=== PATIENT | male | born 1975 | race Caucasian/White ===

== ENCOUNTER 2019-01-20 15:39 | Inpatient (IN) ==
[2019-01-20 16:52] LABS: Basophils # (auto) 0.04 K/uL (0-0.2); Basophils % (auto) 0.6 %; Eosinophils # (auto) 0.39 K/uL (0-0.5); Eosinophils % (auto) 5.6 %; Hematocrit (blood only) 45.5 % (42-52); Hemoglobin 15.6 g/dL (14.0-18.0); Immature Granulocytes # (auto) 0.02 K/uL (0.00-0.02); Immature Granulocytes % (auto) 0.3 %; Lymphocytes # (auto) 1.37 K/uL (1.2-3.4); Lymphocytes % (auto) 19.5 %; Mean Corpuscular Hgb Conc 34.3 g/dL (32-36); Mean Corpuscular Volume 90.8 fL (80-100); Mean Platelet Volume 9.8 fL (7.4-10.4); Monocytes # (auto) 0.93 K/uL (0.11-0.59); Monocytes % (auto) 13.3 %; Neutrophils # (auto) 4.26 K/uL (1.4-6.5); Neutrophils % (auto) 60.7 %; Platelet Count 237 K/uL (130-400); RDW Coefficient of Variation 13.2 % (11.5-14.5); RDW Standard Deviation 43.6 fL (36.4-46.3); Red Blood Count 5.01 M/uL (4.7-6.1); White Blood Count 7.01 K/uL (4.8-10.8)
[2019-01-20 16:54] LABS: Appearance Urine Clear (Clear); Bilirubin Urine Negative (Negative); Blood Urine Negative (Negative); Color Urine Yellow; Glucose Urine UA Negative (Negative); Ketones Urine Negative (Negative); Leukocyte Esterase Urine Negative (Negative); Nitrite Urine Negative (Negative); Protein Urine Negative (Negative); Specific Gravity Urine 1.013 (1.000-1.030); Urobilinogen Urine Negative (Negative); pH Urine 5.5 (4.5-7.5)
[2019-01-20 17:12] LABS: BUN Creatinine Ratio 12.1 (10-20); Calcium 8.8 mg/dl (8.5-10.1); Creatinine Clr Calc Pharmacy 140.4 ml/min; Est GFR (African American) 119.1; Est GFR (Non-African American) 102.8; Potassium 4.2 mmol/L (3.5-5.1)
[2019-01-20 17:22] LABS: Acetaminophen < 2 ug/ml (10-30); Salicylate 2.7 mg/dl (2.8-20)
[2019-01-20 17:23] LABS: Bilirubin,Total 0.2 mg/dl (0.2-1)
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
[2019-01-20] MEDS ORDERED: HYDROCODONE/ACETAMOPHEN 5/325MG TAB PO STA (17:45)
[2019-01-20] MEDS ORDERED: LABETALOL HCL 100 MG TAB PO ONE (17:45)
[2019-01-20 18:32] LABS: Amphetamines+Metham, Urine Neg (Neg); Barbiturates, Urine Neg (Neg); Benzodiazepine, Urine Pos (Neg); Cocaine, Urine Neg (Neg); MDMA (Ecstacy), Urine Neg (Neg); Methadone, Urine Neg (Neg); Opiate, Urine Neg (Neg); Phencyclidine, Urine Neg (Neg)
[2019-01-20] MEDS ORDERED: LORazepam 1 MG TAB SL STA (20:09)
[2019-01-20] MEDS ORDERED: cloNIDine HCl 0.1 MG TAB PO ONE ×2 (20:09→23:26)
[2019-01-20] MEDS ORDERED: OXYCODONE HCL IR 5 MG TAB (IMMEDIATE RELEASE) PO STA (21:07)
[2019-01-21] MEDS ORDERED: AMLODIPINE BESYLATE 5 MG TAB PO ONE ×2 (00:51→13:35)
--- NOTE | 2019-01-21 01:10 | Emergency Department Note ---
ED Visit Note I received this patient in signout at the change of shift from Dr. Rafy Olivier, pending 3 S. admission. Patient's blood pressure was notably elevated during his stay in the ED, he did receive p.o. labetalol 100 mg, clonidine 0.1 mg p.o. with subsequent 0.2 mg dosing. This was over the course of several hours. The patient's blood pressure did respond with a blood pressure of 138/88. I did discuss the case with pharmacy who recommendedNorvasc 5 mg p.o. daily, first dose was given. It would not be in the patient's best interest to have a sig nificant rebound hypertension or labile hypertension. This puts him at high risk of stroke. Further management can be deferred to psychiatry or internal medicine. He will require close follow-up for blood pressure upon discharge. Patient was accepted to 3 S. for further management of his psychiatric needs. . : HTN (hypertension) Qualifiers: Hypertension type: unspecified Qualified Code(s): I10 - Essential (primary) hypertension
[2019-01-21] MEDS ORDERED: MAGNESIUM HYDROXIDE SUSP 30 ML UDC PO PRN (01:45)
[2019-01-21] MEDS ORDERED: ACETAMINOPHEN 325 MG TAB PO PRN (01:45)
[2019-01-21] MEDS ORDERED: BISMUTH SUBSALICYLATE PER ML OMNICELL CHARGE PO PRN (01:45)
[2019-01-21] MEDS ORDERED: SODIUM CHLORIDE 0.65% NA SOLN 45 ML (OCEAN) PRN (01:45)
[2019-01-21] MEDS ORDERED: ALUMINUM/MAGNESIUM SUSP 30 ML UDC PO PRN (01:45)
[2019-01-21] MEDS: PROPRANOLOL HCL 20 MG TAB PO SCH ×2 (11:02→21:29)
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
[2019-01-21] MEDS: FEXOFENADINE HCL 180 MG TAB PO SCH (13:28)
[2019-01-21] MEDS: MONTELUKAST SODIUM 10 MG TABLET PO SCH (13:28)
[2019-01-21] MEDS: GABAPENTIN 100 MG CAP PO SCH ×3 (13:28→21:29)
[2019-01-21] MEDS: ESCITALOPRAM OXALATE 20 MG TAB PO SCH (14:49)
[2019-01-21] MEDS: HYDROCODONE/ACETAMINOPHEN 10/325 TAB PO PRN (15:42)
[2019-01-21] MEDS: FLUTICASONE HFA 220 MCG INHALER INH SCH (21:29)
[2019-01-22] MEDS: HYDROCODONE/ACETAMINOPHEN 10/325 TAB PO PRN ×2 (06:49→15:36)
[2019-01-22] MEDS: FEXOFENADINE HCL 180 MG TAB PO SCH (09:12)
[2019-01-22] MEDS: FLUTICASONE HFA 220 MCG INHALER INH SCH (09:12)
[2019-01-22] MEDS: PROPRANOLOL HCL 20 MG TAB PO SCH (09:12)
[2019-01-22] MEDS: GABAPENTIN 100 MG CAP PO SCH ×3 (09:16→17:18)
[2019-01-22] MEDS: ESCITALOPRAM OXALATE 20 MG TAB PO SCH (09:16)
[2019-01-22] MEDS: MONTELUKAST SODIUM 10 MG TABLET PO SCH (09:17)
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
[2019-01-24 14:46] LABS: 7-Aminoclonaz, Confirm NEGATIVE NG/ML (CUTOFF=25); Hydro-Alp Ur, GC/MS 75 NG/ML (CUTOFF=25); Hydroxyethylflurazepam, Conf NEGATIVE NG/ML (CUTOFF=50); Hydroxytriazolam NEGATIVE NG/ML (CUTOFF=50); Lorazepam, Ur GC/MS NEGATIVE NG/ML (CUTOFF=50); Nordiazepam, Confirm NEGATIVE NG/ML (CUTOFF=50); Oxazepam Ur, GC/MS NEGATIVE NG/ML (CUTOFF=50); Temazepam, Confirm NEGATIVE NG/ML (CUTOFF=50)
== END 2019-01-22 18:00 | disposition home or self-care (01) | DRG 882 ==
LOC: ED 15:39 → 3S 01-21 01:46

== ENCOUNTER 2022-01-21 22:38 | Observation (INO) ==
[2022-01-21 23:23] LABS: Basophils # (auto) 0.04 K/uL (0-0.2); Basophils % (auto) 0.5 %; Eosinophils # (auto) 0.57 K/uL (0-0.5); Eosinophils % (auto) 7.1 %; Hematocrit (blood only) 41.7 % (42-52); Hemoglobin 14.3 g/dL (14.0-18.0); Immature Granulocytes # (auto) 0.02 K/uL (0.00-0.02); Immature Granulocytes % (auto) 0.2 %; Lymphocytes # (auto) 1.97 K/uL (1.2-3.4); Lymphocytes % (auto) 24.6 %; Mean Corpuscular Hgb Conc 34.3 g/dL (32-36); Mean Corpuscular Volume 93.3 fL (80-100); Mean Platelet Volume 9.7 fL (7.4-10.4); Monocytes % (auto) 7.5 %; Neutrophils # (auto) 4.81 K/uL (1.4-6.5); Neutrophils % (auto) 60.1 %; Platelet Count 244 K/uL (130-400); RDW Standard Deviation 47.8 fL (36.4-46.3); Red Blood Count 4.47 M/uL (4.7-6.1); White Blood Count 8.01 K/uL (4.8-10.8)
[2022-01-21 23:46] LABS: Troponin I < 0.03 ng/ml (0-0.04)
[2022-01-21 23:53] LABS: Alanine Aminotransferase 24 U/L (7-52); Albumin Globulin Ratio 1.4 (0.9-2); Albumin Level 3.9 gm/dl (3.4-5.0); Alkaline Phosphatase 60 U/L (34-104); Anion Gap 8 (3-11); BUN Creatinine Ratio 14.1 (10-20); Bilirubin,Total 0.3 mg/dl (0.2-1.0); Blood Urea Nitrogen 14 mg/dl (6-23); Calcium 8.6 mg/dl (8.5-10.1); Carbon Dioxide 27 mmol/L (21-32); Chloride 103 mmol/L (98-107); Creatinine Clr Calc Pharmacy 122.3 ml/min; Est GFR (African American) 103.9 ml/min; Est GFR (Non-African American) 89.7 ml/min; Globulin 2.7 gm/dl (2.5-4.0); Glucose 145 mg/dl (70-99(Fasting)); Sodium 138 mmol/L (136-145); Total Protein 6.6 gm/dl (6.0-8.3)
--- NOTE | 2022-01-22 00:06 | Emergency Department Note ---
Impression & Plan SOB (shortness of breath), HTN (hypertension), Retrosternal chest pain ED Provider Note INFORMANT: Patient ED PROVIDER(S): Vinod Duran MD CHIEF COMPLAINT: Shortness of breath PLAN: Disposition: Admitted Condition: Good Outpatient prescription management: none Referral: None MEDICAL DECISION MAKING: Patient presented with concerning symptoms of shortness of breath, diaphoresis, retrosternal chest pain that radiated to the neck with significant hypertension. Patient's blood pressure improved significantly without direct intervention. His chest x-ray was unremarkable. The patient's CBC and chemistry panel were negative. ECG did not reveal any acute findings. The patient was given aspirin. His troponin was negative. The patient's D-dimer was mildly elevated. CT imaging was ordered however this was canceled due to the patient's history of anaphylaxis with CT dye. Given the patient's family history and event this evening I discussed further management in the hospital for serial troponins and possible stress testing. Patient was in agreement. Consultation was made with Dr. Jerad Zavala of the [facility] service. Patient was evaluated in the ER for further management. We did discuss the dye allergy and positive D-dimer. They will manage further work-up for the elevated dimer. Triage Nursing notes reviewed and agree them. Vital Signs: reviewed and remarkable for hypertension Differential diagnosis: Reactive airway disease, pneumonia, pneumothorax, COPD, CHF, infections, cardiac ischemia, pulmonary embolism, musculoskeletal, gastrointestinal, as well as other pathologies. Diagnostics interpreted by me: EC Lead ECG performed and revealed Normal sinus rhythm at 75, normal [place], QRS normal. No elevation or depression. No PACs or PVCs Cardiac Monitoring: Cardiac monitoring ordered by me: The patient was placed on continuous cardiac monitoring and observed. It revealed a normal sinus rhythm at 77 beats per minute without ectopy or evidence of dysrhythmia. Imaging studies: Chest x-ray. Findings: A chest x-ray was performed and revealed no pneumothorax, effusion, infiltrate, pulmonary edema, free air under the diaphragm, or wide mediastinum. Impression: No acute disease. HPI: The patient is a 46 year old male who presents to the Emergency Room with complaints of shortness of breath. This started this evening and is resolved. The patient also notes the following associated symptoms, retrosternal chest pain, posterior neck pain, diaphoresis. The patient has taken no medication for relieving factors. Current pain is rated as 0/10. When the patient presented pain was a 4 out of 10. He notes his blood pressure spiked to 190/105. This event occurred at rest. Pt denies LOC, headache, fevers, chills, visual changes, neck pain,nausea, vomiting, abdominal pain, back pain, melena, hematochezia, urinary symptoms, numbness, weakness, lymphadenopathy, rash, or other complaints. ROS: See above HPI for pertinent positives & negatives. A total of 10 systems reviewed and were otherwise negative. PAST MEDICAL HISTORY:See Below , hypertension PAST SURGICAL HISTORY:See Below, appendectomy FAMILY HISTORY:See Below, Hypertension, CAD SOCIAL HISTORY:See Below, non-smoker HOME MEDICATIONS:See Below ALLERGIES:See Below VITALS:See Below PHYSICAL EXAMINATION: GENERAL: Awake, alert, well-appearing, in no distress HENT: Normocephalic, atraumatic. Oropharynx unremarkable. EYES: Normal conjunctiva. Sclera non-icteric. NECK: Inspection normal. Non-tender. Supple. No nuchal rigidity. FROM. No masses. RESPIRATORY: Clear to auscultation. No wheezes. No rales. Normal respiratory effort. CARDIAC: Normal rate. Normal rhythm. No murmurs. No rubs. Extremities warm and well perfused. Pulses equal. No JVD. GI: Soft, non-distended. No tenderness to palpation. No rebound or guarding. No masses. RECTAL: Deferred. MUSCULOSKELETAL: Atraumatic. Chest examination reveals no tenderness. The back is symmetrical on inspection without obvious abnormality. There is no CVA tenderness to palpation. No joint edema. LOWER EXTREMITIES: Calves are equal size bilaterally and non-tender. Trace edema. No discoloration. NEURO: Normal sensorium. No sensory or motor deficits noted. SKIN: No rash or jaundice noted. Vinod Duran MD Past Med/Surg History Medical History (Updated 01/22/22 @ 00:05 by Vinod Duran MD) HTN (hypertension) PTSD (post-traumatic stress disorder) Spinal injury Social History Smoking Status: Former smoker Tobacco Type: Cigarettes Preferred Language: Occitan Communication Ability: Effective Hose Stripper Required: No Beliefs That Will Affect Care: Faith ([employer]) Feels Safe at Home: Yes Assistive Devices: Glasses Allergies Allergies Allergy/AdvReac Type Severity Reaction Status Date / Time Iodinated Contrast Media Allergy Severe Anaphylaxis Verified 01/21/22 23:28 Home Meds Home Medications Medication Instructions Recorded Confirmed hydrocodone 10 mg-acetaminophen 1 tab PO Q8H PRN 01/20/19 01/21/22 325 mg tablet montelukast 10 mg tablet 10 mg PO DAILY 01/20/19 01/21/22 alprazolam 0.25 mg tablet 0.25 mg PO DAILY PRN 01/21/22 01/21/22 amlodipine 5 mg tablet 5 mg PO DAILY 01/21/22 01/21/22 cholecalciferol (vitamin D3) 50 2,000 unit PO DAILY 01/21/22 01/21/22 mcg (2,000 unit) tablet clomiphene citrate 50 mg tablet 50 mg PO DAILY 01/21/22 01/21/22 gabapentin 300 mg capsule 300 mg PO BID 01/21/22 01/21/22 losartan 100 mg tablet 100 mg PO DAILY 01/21/22 01/21/22 Results & Data (ED) Vital Signs Vital Signs - 24 hr 01/21/22 22:40 01/21/22 22:58 01/21/22 23:00 Temperature 36.5 C Temperature Source Temporal Artery Scan Pulse Rate 73 72 75 Pulse Rhythm Respiratory Rate 20 20 17 Respiratory Effort / Characteristics Non-Labored Spontaneous Respiratory Depth Normal Respiratory Pattern Blood Pressure 190/104 H 172/97 H Blood Pressure Mean 132 122 Blood Pressure Position Sitting Pulse Oximetry 99 100 100 Oxygen Delivery Method Room Air Sepsis Recent Fever Within 48 Hours No Sepsis New/Unexplained Change in Mental Status N/A Sepsis Action Taken by Nursing No Action Required 01/21/22 23:06 01/21/22 23:30 01/21/22 23:33 Temperature Temperature Source Pulse Rate 79 82 Pulse Rhythm Regular Respiratory Rate 16 Respiratory Effort / Characteristics Non-Labored Respiratory Depth Normal Respiratory Pattern Regular Blood Pressure 153/85 H Blood Pressure Mean 107 Blood Pressure Position Pulse Oximetry 98 98 Oxygen Delivery Method Room Air Room Air Sepsis Recent Fever Within 48 Hours Sepsis New/Unexplained Change in Mental Status Sepsis Action Taken by Nursing 01/21/22 23:45 01/22/22 00:00 01/22/22 00:15 Temperature Temperature Source Pulse Rate 78 78 83 Pulse Rhythm Respiratory Rate 19 19 19 Respiratory Effort / Characteristics Respiratory Depth Respiratory Pattern Blood Pressure 154/92 H Blood Pressure Mean 112 Blood Pressure Position Pulse Oximetry 100 98 97 Oxygen Delivery Method Sepsis Recent Fever Within 48 Hours Sepsis New/Unexplained Change in Mental Status Sepsis Action Taken by Nursing 01/22/22 00:30 01/22/22 00:45 01/22/22 01:00 Temperature Temperature Source Pulse Rate 81 78 77 Pulse Rhythm Respiratory Rate 18 16 16 Respiratory Effort / Characteristics Respiratory Depth Respiratory Pattern Blood Pressure 136/82 Blood Pressure Mean 100 Blood Pressure Position Pulse Oximetry 98 97 Oxygen Delivery Method Sepsis Recent Fever Within 48 Hours Sepsis New/Unexplained Change in Mental Status Sepsis Action Taken by Nursing Laboratory Data Result diagrams: 01/21/22 23:00 01/21/22 23:00 Lab Results 01/21/22 01/21/22 01/21/22 Range/Units 23:00 23:00 23:00 WBC 8.01 (4.8-10.8) K/uL RBC 4.47 L (4.7-6.1) M/uL Hgb 14.3 (14.0-18.0) g/dL Hct 41.7 L (42-52) % MCV 93.3 (80-100) fL MCH 32.0 (25-34) pg MCHC 34.3 (32-36) g/dL RDW Std Deviation 47.8 H (36.4-46.3) fL RDW Coeff of Carol 14.0 (11.5-14.5) % Plt Count 244 (130-400) K/uL MPV 9.7 (7.4-10.4) fL Immature Gran % (Auto) 0.2 % Neut % (Auto) 60.1 % Lymph % (Auto) 24.6 % [place] % (Auto) 7.5 % Eos % (Auto) 7.1 % Baso % (Auto) 0.5 % Neut # (Auto) 4.81 (1.4-6.5) K/uL Lymph # (Auto) 1.97 (1.2-3.4) K/uL [place] # (Auto) 0.60 H (0.11-0.59) K/uL Eos # (Auto) 0.57 H (0-0.5) K/uL Baso # (Auto) 0.04 (0-0.2) K/uL Immature Gran # (Auto) 0.02 (0.00-0.02) K/uL D-Dimer 840 H* (0-500) ug/L FEU Sodium (136-145) mmol/L Potassium (3.5-5.1) mmol/L Chloride (98-107) mmol/L Carbon Dioxide (21-32) mmol/L Anion Gap (3-11) BUN (6-23) mg/dl Creatinine (0.6-1.4) mg/dl Est Cr Clr Drug Dosing ml/min Est GFR ( Amer) ml/min Est GFR (Non-Af Amer) ml/min BUN/Creatinine Ratio (10-20) Glucose (70-99(Fasting)) mg/dl Calcium (8.5-10.1) mg/dl Magnesium (1.7-2.4) mg/dl Total Bilirubin (0.2-1.0) mg/dl AST (13-39) U/L ALT (7-52) U/L Alkaline Phosphatase (34-104) U/L Troponin I (0-0.04) ng/ml B-Natriuretic Peptide 57 (0-100) pg/ml Total Protein (6.0-8.3) gm/dl Albumin (3.4-5.0) gm/dl Globulin (2.5-4.0) gm/dl Albumin/Globulin Ratio (0.9-2) 01/21/22 Range/Units 23:00 WBC (4.8-10.8) K/uL RBC (4.7-6.1) M/uL Hgb (14.0-18.0) g/dL Hct (42-52) % MCV (80-100) fL MCH (25-34) pg MCHC (32-36) g/dL RDW Std Deviation (36.4-46.3) fL RDW Coeff of Carol (11.5-14.5) % Plt Count (130-400) K/uL MPV (7.4-10.4) fL Immature Gran % (Auto) % Neut % (Auto) % Lymph % (Auto) % [place] % (Auto) % Eos % (Auto) % Baso % (Auto) % Neut # (Auto) (1.4-6.5) K/uL Lymph # (Auto) (1.2-3.4) K/uL [place] # (Auto) (0.11-0.59) K/uL Eos # (Auto) (0-0.5) K/uL Baso # (Auto) (0-0.2) K/uL Immature Gran # (Auto) (0.00-0.02) K/uL D-Dimer (0-500) ug/L FEU Sodium 138 (136-145) mmol/L Potassium 4.1 (3.5-5.1) mmol/L Chloride 103 (98-107) mmol/L Carbon Dioxide 27 (21-32) mmol/L Anion Gap 8 (3-11) BUN 14 (6-23) mg/dl Creatinine 0.99 (0.6-1.4) mg/dl Est Cr Clr Drug Dosing 122.3 ml/min Est GFR ( Amer) 103.9 ml/min Est GFR (Non-Af Amer) 89.7 ml/min BUN/Creatinine Ratio 14.1 (10-20) Glucose 145 H (70-99(Fasting)) mg/dl Calcium 8.6 (8.5-10.1) mg/dl Magnesium 2.0 (1.7-2.4) mg/dl Total Bilirubin 0.3 (0.2-1.0) mg/dl AST 25 (13-39) U/L ALT 24 (7-52) U/L Alkaline Phosphatase 60 (34-104) U/L Troponin I < 0.03 (0-0.04) ng/ml B-Natriuretic Peptide (0-100) pg/ml Total Protein 6.6 (6.0-8.3) gm/dl Albumin 3.9 (3.4-5.0) gm/dl Globulin 2.7 (2.5-4.0) gm/dl Albumin/Globulin Ratio 1.4 (0.9-2) Administered Medications Discontinued Medications Aspirin (Aspirin Chew 324 Mg) 324 mg PO NOW STA Stop: 01/22/22 00:49 Last Admin: 01/22/22 01:13 Dose: 324 mg Documented by: [id number] Discharge Plan Visit Data Chief Complaint: Shortness of Breath/Dyspnea Stated Complaint: SOB, HYPERTENSION ED Provider: Vinod Duran Discharge Problem: SOB (shortness of breath), HTN (hypertension), Retrosternal chest pain Forms Stand Alone Forms: My [facility] Prescriptions Prescriptions: No Action hydrocodone-acetaminophen 10-325 mg Tablet 1 tab PO Q8H PRN (Reason: Back Pain) RF: 0 montelukast 10 mg Tablet 10 mg PO DAILY RF: 0 clomiphene citrate 50 mg tablet 50 mg PO DAILY RF: 0 amlodipine 5 mg tablet 5 mg PO DAILY RF: 0 alprazolam 0.25 mg tablet 0.25 mg PO DAILY PRN (Reason: Anxiety) RF: 0 gabapentin 300 mg capsule 300 mg PO BID RF: 0 losartan 100 mg tablet 100 mg PO DAILY RF: 0 cholecalciferol (vitamin D3) 50 mcg (2,000 unit) tablet 2,000 unit PO DAILY RF: 0 Referrals Referrals: PCP,NO [Physician] -
[2022-01-22 00:30] LABS: Aspartate Aminotransferase 25 U/L (13-39); Potassium 4.1 mmol/L (3.5-5.1)
[2022-01-22 00:34] LABS: D Dimer 840 ug/L FEU (0-500)
[2022-01-22] MEDS ORDERED: ASPIRIN CHEW 324 MG PO STA (00:48)
--- NOTE | 2022-01-22 02:12 | History & Physical Report ---
Date of Service January 22, 2022 Assessment & Plan (1) Retrosternal chest pain: Plan: Retrosternal chest pain/shortness of breath/palpitations/sweats/hypertension- The patient will be admitted to telemetry for serial cardiac enzymes, serial EKG's, cardiac rhythm monitoring and a 2-D echocardiogram with Dopplers. 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: Plan: Patient is on clomiphene citrate while he and his have been been trying to conceive for the past year It is possible that the potential side effect of this medication causing hot flashes may be contributing to and/or causing his paroxysmal symptoms We will hold this medication for now Check an FSH, LH, estrogen and testosterone levels (5) PTSD (post-traumatic stress disorder): Plan: PTSD/depression/history of suicide attempt/no present suicidal ideation- Continue gabapentin and as needed alprazolam (6) Depression: Plan: See above (7) Suicide attempt: Plan: See above History of Present Illness Chief Complaint: The patient presents to the emergency department with acute onset of episodic substernal chest pressure and diffuse sweats that initially occurred 4 nights ago while at home, and was sent home from work 3 nights ago and tonight. Primary Care Provider: Colin Amato The patient is a 46-year-old male with a past medical history including suicide attempt, depression, suicidal ideation, hypertension, spinal injury and PTSD. He presents to the emergency department with acute onset of symptoms as noted above. He did have an episode while in front of me in the emergency department, which consisted of acute substernal chest pressure, heart rate increased from 80-100, systolic blood pressure increased by 20 points. EKG performed during acute event showed normal sinus rhythm at [address]-T changes. Patient notes that when this had happened in the past, he did get some Xanax which helped the symptoms, he was given 0.25 mg of Xanax while in the ED this evening. Allergies Allergy/AdvReac Type Severity Reaction Status Date / Time Iodinated Contrast Media Allergy Severe Anaphylaxis Verified 01/21/22 23:28 Home Medications Medication Instructions Recorded Confirmed Type hydrocodone 10 mg-acetaminophen 1 tab PO Q8H PRN 01/20/19 01/21/22 History 325 mg tablet montelukast 10 mg tablet 10 mg PO DAILY 01/20/19 01/21/22 History alprazolam 0.25 mg tablet 0.25 mg PO DAILY PRN 01/21/22 01/21/22 History amlodipine 5 mg tablet 5 mg PO DAILY 01/21/22 01/21/22 History cholecalciferol (vitamin D3) 50 2,000 unit PO DAILY 01/21/22 01/21/22 History mcg (2,000 unit) tablet clomiphene citrate 50 mg tablet 50 mg PO DAILY 01/21/22 01/21/22 History gabapentin 300 mg capsule 300 mg PO BID 01/21/22 01/21/22 History losartan 100 mg tablet 100 mg PO DAILY 01/21/22 01/21/22 History Past Med/Surg History Medical History (Updated 01/22/22 @ 04:20 by Jerad Zavala MD) Depression HTN (hypertension) 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 PTSD (post-traumatic stress disorder) Spinal injury Suicide attempt Social History Smoking Status: Former smoker Tobacco Type: Cigarettes Smoking End Date: 8 years ago; Second Hand Exposure: No; Do You Dip or Chew Tobacco: No; Tobacco Cessation Education Requested by Patient: No Hx Alcohol Use: Yes Alcohol type: beer Hx Substance Use: Yes Last Used Substance: Days (ago) Substance Use Type Other:: medical Preferred Language: Frisian Communication Ability: Effective 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 Beliefs That Will Affect Care: None Current Living Situation: Spouse Other Information That Helps Us Care for You: No Feels Safe at Home: Yes Safety Concerns: Feels Safe At This Time Assistive Devices: Glasses Review of Systems Review of Systems: The patient denies cough, lower extremity swelling, sore throat, fevers, chills, sweats, weight change, fatigue, nausea, vomiting, diarrhea , constipation, abdominal pain, pelvic pain, blood in urine or stool, dysuria, urinary frequency or urgency, memory loss, loss of consciousness, rash, abnormal bruising or bleeding, imbalance, focal or generalized weakness, numbness or tingling in arms or legs, generalized arthralgias or myalgias, back or neck pain, or night sweats. The review of systems is otherwise negative other than for that already noted above, and at least 10 systems have been reviewed. Physical Exam Physical Exam: The patient is awake, alert and oriented 3, well developed and well nourished, normocephalic and atraumatic, lying in bed and in no acute distress. HEENT--PERRL, EOMI, mucous membranes and oropharynx normal. Neck--supple. No JVD. No bruits. Thyroid normal, trachea midline, no adenopathy. Heart--normal S1 and S2. No murmurs, rubs or gallops. Lungs--clear bilaterally, no respiratory distress, no accessory muscle use. Abdomen--normal bowel sounds and soft. Nontender. Nondistended. Obese Extremities--no cyanosis or clubbing. No edema. Dermatologic--normal skin turgor, normal color, no abnormal lymph nodes, no r monik. Neurologic--cranial nerves II through XII grossly intact. Rheumatologic--normal range of motion. Psychiatric--normal affect. Results & Data Results & Data ([facility]) Vital Signs (Past 12 Hours) Vital Signs Temp Pulse Resp BP Pulse Ox 01/22/22 01:00 77 16 136/82 97 01/22/22 00:45 78 16 98 01/22/22 00:30 81 18 01/22/22 00:15 83 19 97 01/22/22 00:00 78 19 154/92 H 98 01/21/22 23:45 78 19 100 01/21/22 23:33 82 98 01/21/22 23:30 79 16 153/85 H 98 01/21/22 23:00 75 17 172/97 H 100 01/21/22 22:58 72 20 100 01/21/22 22:40 36.5 C 73 20 190/104 H 99 Diagnostic Findings Laboratory Results WBC 8.01 K/uL (4.8-10.8) 01/21/22 23:00 RBC 4.47 M/uL (4.7-6.1) L 01/21/22 23:00 Hgb 14.3 g/dL (14.0-18.0) 01/21/22 23:00 Hct 41.7 % (42-52) L 01/21/22 23:00 MCV 93.3 fL (80-100) 01/21/22 23:00 MCH 32.0 pg (25-34) 01/21/22 23:00 MCHC 34.3 g/dL (32-36) 01/21/22 23:00 RDW Std Deviation 47.8 fL (36.4-46.3) H 01/21/22 23:00 RDW Coeff of Carol 14.0 % (11.5-14.5) 01/21/22 23:00 Plt Count 244 K/uL (130-400) 01/21/22 23:00 MPV 9.7 fL (7.4-10.4) 01/21/22 23:00 Immature Gran % (Auto) 0.2 % 01/21/22 23:00 Neut % (Auto) 60.1 % 01/21/22 23:00 Lymph % (Auto) 24.6 % 01/21/22 23:00 [place] % (Auto) 7.5 % 01/21/22 23:00 Eos % (Auto) 7.1 % 01/21/22 23:00 Baso % (Auto) 0.5 % 01/21/22 23:00 Neut # (Auto) 4.81 K/uL (1.4-6.5) 01/21/22 23:00 Lymph # (Auto) 1.97 K/uL (1.2-3.4) 01/21/22 23:00 [place] # (Auto) 0.60 K/uL (0.11-0.59) H 01/21/22 23:00 Eos # (Auto) 0.57 K/uL (0-0.5) H 01/21/22 23:00 Baso # (Auto) 0.04 K/uL (0-0.2) 01/21/22 23:00 Immature Gran # (Auto) 0.02 K/uL (0.00-0.02) 01/21/22 23:00 D-Dimer 840 ug/L FEU (0-500) H* 01/21/22 23:00 Sodium 138 mmol/L (136-145) 01/21/22 23:00 Potassium 4.1 mmol/L (3.5-5.1) 01/21/22 23:00 Chloride 103 mmol/L (98-107) 01/21/22 23:00 Carbon Dioxide 27 mmol/L (21-32) 01/21/22 23:00 Anion Gap 8 (3-11) 01/21/22 23:00 BUN 14 mg/dl (6-23) 01/21/22 23:00 Creatinine 0.99 mg/dl (0.6-1.4) 01/21/22 23:00 Est Cr Clr Drug Dosing 122.3 ml/min 01/21/22 23:00 Est GFR ( Amer) 103.9 ml/min 01/21/22 23:00 Est GFR (Non-Af Amer) 89.7 ml/min 01/21/22 23:00 BUN/Creatinine Ratio 14.1 (10-20) 01/21/22 23:00 Glucose 145 mg/dl (70-99(Fasting)) H 01/21/22 23:00 POC Glucose 180 mg/dl (70-99) H 01/22/22 01:52 Calcium 8.6 mg/dl (8.5-10.1) 01/21/22 23:00 Magnesium 2.0 mg/dl (1.7-2.4) 01/21/22 23:00 Total Bilirubin 0.3 mg/dl (0.2-1.0) 01/21/22 23:00 AST 25 U/L (13-39) 01/21/22 23:00 ALT 24 U/L (7-52) 01/21/22 23:00 Alkaline Phosphatase 60 U/L (34-104) 01/21/22 23:00 Troponin I < 0.03 ng/ml (0-0.04) 01/21/22 23:00 B-Natriuretic Peptide 57 pg/ml (0-100) 01/21/22 23:00 Total Protein 6.6 gm/dl (6.0-8.3) 01/21/22 23:00 Albumin 3.9 gm/dl (3.4-5.0) 01/21/22 23:00 Globulin 2.7 gm/dl (2.5-4.0) 01/21/22 23:00 Albumin/Globulin Ratio 1.4 (0.9-2) 01/21/22 23:00 TSH 1.727 uIu/ml (0.300-4.500) 01/22/22 Unknown FSH 4.93 IU/L 01/22/22 Unknown Luteinizing Hormone 2.54 IU/L 01/22/22 Unknown SARS-CoV-2, RNA, NAAT NEGATIVE (NEGATIVE) 01/22/22 Unknown Code Status & VTE Plan Code Status Full code VTE Prophylaxis Plan VTE Prophylaxis will be ordered: Yes PG Care Time/CCT Total # of Minutes Spent Total Time Spent with Patient: Total time spent is greater than 50% in coordination of care (as documented) at patient's floor/unit and/or counseling patient: Coding Level of Care Code INT OBSERVATION CARE 70M LVL 3 Diagnoses Retrosternal chest pain R07.2 SOB (shortness of breath) R06.02 HTN (hypertension) I10 Depression F32.9 Depression Type: unspecified Suicide attempt T14.91XA 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 N46.9 PTSD (post-traumatic stress disorder) F43.10 (1) Depression Depression Type: unspecified Qualified Code(s): F32.9 - Major depressive disorder, single episode, unspecified
[2022-01-22] MEDS ORDERED: ALPRAZolam 0.5 MG TABLET PO STA (02:44)
[2022-01-22] MEDS ORDERED: ALPRAZolam 0.5 MG TABLET ONE (02:46)
[2022-01-22 03:19] LABS: Follicle Stimulating Hormone 4.93 IU/L
[2022-01-22 03:20] LABS: Luteinizing Hormone 2.54 IU/L
[2022-01-22] MEDS ORDERED: ACETAMINOPHEN 325 MG TAB PO PRN (03:29)
[2022-01-22] MEDS ORDERED: ALPRAZolam 0.25 MG TABLET PO PRN (03:29)
[2022-01-22] MEDS ORDERED: ONDANSETRON INJ 2 MG/ML 2 ML VIAL IV PRN (03:29)
[2022-01-22] MEDS: HYDROcodone/ACETAMINOPHEN 10/325 TAB PO PRN ×2 (04:12→19:25)
--- NOTE | 2022-01-22 07:52 | XRay Report ---
SINGLE VIEW CHEST CLINICAL HISTORY: Dyspnea FINDINGS: An AP, portable, upright chest radiograph is obtained. No prior studies are available for c omparison at the time of dictation. The examination is degraded by portable technique and apical lord otic positioning. The cardiomediastinal silhouette is top normal for projection. The lungs and pleura l spaces are clear noting minimal bibasilar atelectasis. No pneumothorax is seen. The bony thorax is grossly intact. IMPRESSION: No active disease in the chest. ACT 112: Negative or not required by law. Electronically signed by: Rafy Randolph M.D. 01/22/2022 7:51 AM
--- NOTE | 2022-01-22 08:14 | CT Scan Report ---
CT SCAN OF THE CHEST WITHOUT IV CONTRAST CLINICAL HISTORY: Paroxysmal chest pain. Dyspnea. COMPARISON STUDY: Chest x-ray dated 01/21/2022. TECHNIQUE: CT scan of the thorax was performed from the thoracic inlet to the upper abdomen. Images are reviewed in the axial, sagittal, and coronal planes. IV contrast was not administered for this ex amination as per the referring clinician. A dose lowering technique was utilized adhering to the [facility]. CT DOSE: 1031.47 mGy.cm FINDINGS: Thyroid: Imaged portions of the thyroid gland are normal in size and attenuation. Thoracic aorta: The thoracic aorta is normal in caliber and demonstrates standard 3-vessel arch anato my. Heart: The heart is top normal in size and without pericardial effusion. There are coronary artery ca lcifications. Lungs and pleural spaces: There is no airspace consolidation or pleural effusion. A 3 mm right lower lobe pulmonary nodule is seen image #174. The trachea and central airways are clear. Mediastinum: There is no mediastinal lymphadenopathy. Irene: Not well assessed without IV contrast. Axillae: There is no axillary lymphadenopathy. Upper abdomen: There is a small hiatal hernia. The liver is steatotic. Skeletal structures: No lytic or blastic bony lesions are seen. IMPRESSION: 1. The lungs are clear. 2. There are coronary artery calcifications. 3. Hepatic steatosis. ACT 112: Negative or not required by law. Electronically signed by: Rafy Randolph M.D. 01/22/2022 8:12 AM
[2022-01-22] MEDS: amLODIPine BESYLATE 5 MG TAB PO SCH (08:27)
[2022-01-22] MEDS: CHOLECALCIFEROL 1,000 UNITS 25 MCG TAB PO SCH (08:28)
[2022-01-22] MEDS: GABAPENTIN 300 MG CAP PO SCH ×2 (08:28→21:13)
[2022-01-22] MEDS: LOSARTAN POTASSIUM 50 MG TAB PO SCH (08:29)
[2022-01-22] MEDS: MONTELUKAST SODIUM 10 MG TABLET PO SCH (08:29)
--- NOTE | 2022-01-22 10:48 | Nuclear Medicine Report ---
NUCLEAR PULMONARY PERFUSION SCAN CLINICAL HISTORY: Atypical chest pain. Elevated d-dimer. COMPARISON STUDY: Chest x-ray dated 01/21/[address] dated 01/22/2022. TECHNIQUE: Nuclear pulmonary perfusion scan of both lungs was performed following the IV administrati on of 5.1 mCi of technetium 99m MAA. Ventilation and perfusion images were acquired in the anterior, posterior, and oblique projections. FINDINGS: A chest x-ray performed 01/21/2022 shows no acute cardiopulmonary abnormality The perfusion of both lungs is normal and symmetric. No perfusion defects are identified to suggest p ulmonary embolus. IMPRESSION: No perfusion defects are identified typical for pulmonary embolus. ACT 112: Negative or not required by law. Electronically signed by: Rafy Randolph M.D. 01/22/2022 10:47 AM
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
[2022-01-22 11:24] LABS: Appearance Urine Clear (Clear); Bilirubin Urine Negative (Negative); Blood Urine Negative (Negative); Color Urine Yellow; Glucose Urine UA Negative (Negative); Ketones Urine Negative (Negative); Leukocyte Esterase Urine Negative (Negative); Nitrite Urine Negative (Negative); Protein Urine Negative (Negative); Specific Gravity Urine 1.017 (1.000-1.030); Urobilinogen Urine Negative (Negative); pH Urine 6.5 (4.5-7.5)
[2022-01-22 14:42] LABS: Chol HDL Ratio 6.1 (0-5)
--- NOTE | 2022-01-22 16:46 | XCELERA ---
[id number] \\[id number]
--- NOTE | 2022-01-22 18:37 | XCELERA ---
[id number] \\[id number]
--- NOTE | 2022-01-22 21:06 | Hospitalist Progress Note ---
Date of Service January 22, 2022 Assessment & Plan (1) Retrosternal chest pain: Plan: Retrosternal chest pain/shortness of breath/palpitations/sweats/hypertension- The patient will be admitted to telemetry for serial cardiac enzymes, serial EKG's, cardiac rhythm monitoring and a 2-D echocardiogram with Dopplers. 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: Plan: Patient is on clomiphene citrate while he and his have been been trying to conceive for the past year It is possible that the potential side effect of this medication causing hot flashes may be contributing to and/or causing his paroxysmal symptoms We will hold this medication for now Check an FSH, LH, estrogen and testosterone levels (5) PTSD (post-traumatic stress disorder): Plan: PTSD/depression/history of suicide attempt/no present suicidal ideation- Continue gabapentin and as needed alprazolam (6) Depression: Plan: See above (7) Suicide attempt: Plan: See above Admission and Anticipated Discharge Date Admission Date: January 22, 2022 Results & Data Results & Data (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
--- NOTE | 2022-01-23 05:28 | Electrocardiogram Report ---
Test Reason : Blood Pressure : / mmHG Vent. Rate : 075 BPM Atrial Rate : 075 BPM P-R Int : 138 ms QRS Dur : 106 ms QT Int : 412 ms P-R-T Axes : 030 024 020 degrees QTc Int : 460 ms Poor data quality, interpretation may be adversely affected Normal sinus rhythm Normal ECG No previous ECGs available Confirmed by Neeraj Arredondo ([id number]) on 01/23/2022 5:28:43 AM Referred By: REFERRED SELF Confirmed By:Neeraj Arredondo
--- NOTE | 2022-01-23 05:31 | Electrocardiogram Report ---
Test Reason : Blood Pressure : / mmHG Vent. Rate : 066 BPM Atrial Rate : 066 BPM P-R Int : 152 ms QRS Dur : 102 ms QT Int : 402 ms P-R-T Axes : 029 029 029 degrees QTc Int : 421 ms Normal sinus rhythm Normal ECG When compared with ECG of 21-JAN-2022 22:52, No significant change was found Confirmed by Neeraj Arredondo ([id number]) on 01/23/2022 5:30:43 AM Referred By: REFERRED SELF Confirmed By:Neeraj Arredondo
[2022-01-23] MEDS: HYDROcodone/ACETAMINOPHEN 10/325 TAB PO PRN (05:50)
[2022-01-23 06:27] LABS: Basophils # (auto) 0.08 K/uL (0-0.2); Eosinophils # (auto) 0.74 K/uL (0-0.5); Eosinophils % (auto) 9.5 %; Hematocrit (blood only) 41.9 % (42-52); Hemoglobin 14.1 g/dL (14.0-18.0); Immature Granulocytes # (auto) 0.01 K/uL (0.00-0.02); Immature Granulocytes % (auto) 0.1 %; Lymphocytes # (auto) 2.41 K/uL (1.2-3.4); Lymphocytes % (auto) 30.8 %; Mean Corpuscular Hemoglobin 31.2 pg (25-34); Mean Corpuscular Hgb Conc 33.7 g/dL (32-36); Mean Corpuscular Volume 92.7 fL (80-100); Mean Platelet Volume 9.8 fL (7.4-10.4); Monocytes # (auto) 0.49 K/uL (0.11-0.59); Monocytes % (auto) 6.3 %; Neutrophils % (auto) 52.3 %; Platelet Count 245 K/uL (130-400); RDW Coefficient of Variation 13.8 % (11.5-14.5); RDW Standard Deviation 47.2 fL (36.4-46.3); Red Blood Count 4.52 M/uL (4.7-6.1); White Blood Count 7.83 K/uL (4.8-10.8)
[2022-01-23 07:01] LABS: Albumin Level 3.8 gm/dl (3.4-5.0); Calcium 8.8 mg/dl (8.5-10.1); Creatinine Clr Calc Pharmacy 117.9 ml/min; Est GFR (African American) 102.7 ml/min; Est GFR (Non-African American) 88.6 ml/min; Phosphorus 3.9 mg/dl (2.5-4.9)
[2022-01-23] MEDS: CHOLECALCIFEROL 1,000 UNITS 25 MCG TAB PO SCH (09:14)
[2022-01-23] MEDS: amLODIPine BESYLATE 5 MG TAB PO SCH (09:14)
[2022-01-23] MEDS: GABAPENTIN 300 MG CAP PO SCH (09:15)
[2022-01-23] MEDS: MONTELUKAST SODIUM 10 MG TABLET PO SCH (09:15)
[2022-01-23] MEDS: LOSARTAN POTASSIUM 50 MG TAB PO SCH (09:15)
--- NOTE | 2022-01-24 06:09 | Electrocardiogram Report ---
Test Reason : Blood Pressure : / mmHG Vent. Rate : 065 BPM Atrial Rate : 065 BPM P-R Int : 160 ms QRS Dur : 104 ms QT Int : 426 ms P-R-T Axes : 048 039 048 degrees QTc Int : 443 ms Normal sinus rhythm Normal ECG When compared with ECG of 22-JAN-2022 01:51, No significant change was found Confirmed by Neeraj Arredondo ([id number]) on 01/24/2022 6:09:26 AM Referred By: REFERRED SELF Confirmed By:Neeraj Arredondo
[2022-01-26 23:21] LABS: Estrogen 161.3 pg/mL (60-190); Testosterone Free 74.1 pg/mL (35.0-155.0)
[2022-01-27 04:42] LABS: Creatinine, Random Urine 90 mg/dL (20-320); Total Metanephrine 188 mcg/g cr (155-608)
[2022-01-28 09:56] LABS: Metanephrine, Plasma <25 pg/mL (<=57); Normetanephrine Plasma 39 pg/mL (<=148); Total Metanephrine Plasma 39 pg/mL (<=205)
[2022-01-28 15:11] LABS: Normetanephrine, Ur 329 mcg/24 h (88-649); Total Metanephrine 396 mcg/24 h (182-739)
--- NOTE | 2022-01-29 23:26 | Discharge Summary ---
Date of Service January 23, 2022 Admission HPI Per Admitting Provider The patient is a 46-year-old male with a past medical history including suicide attempt, depression, suicidal ideation, hypertension, spinal injury and PTSD. He presents to the emergency department with acute onset of symptoms as noted above. He did have an episode while in front of me in the emergency department, which consisted of acute substernal chest pressure, heart rate increased from 80-100, systolic blood pressure increased by 20 points. EKG performed during acute event showed normal sinus rhythm at [address]-T changes. Patient notes that when this had happened in the past, he did get some Xanax which helped the symptoms, he was given 0.25 mg of Xanax while in the ED this evening. Principal Diagnosis retrosternal chest pain Discharge Exam The patient is awake, alert and oriented 3, well developed and well nourished, normocephalic and atraumatic HEENT--PERRL, EOMI, mucous membranes and oropharynx normal. Neck--supple. No JVD. No bruits. Thyroid normal, trachea midline, no adenopathy. Heart--normal S1 and S2. No murmurs, rubs or gallops. Lungs--clear bilaterally, no respiratory distress, no accessory muscle use. Abdomen--normal bowel sounds and soft. Nontender. Nondistended. Obese Extremities--no cyanosis or clubbing. No edema. Dermatologic--normal skin turgor, normal color, no abnormal lymph nodes, no rash. Neurologic--cranial nerves II through XII grossly intact. Rheumatologic--normal range of motion. Psychiatric--normal affect. Discharge Data Allergies Allergy/AdvReac Type Severity Reaction Status Date / Time Iodinated Contrast Media Allergy Severe Anaphylaxis Verified 01/21/22 23:28 Consultations 01/22/22 00:55 ED Decision to Admit Stat 01/22/22 07:41 Consult Cardiology Routine Ordered Studies 01/22/22 02:08 CT chest diagnostic wo con Urgent Hospital Course (1) Retrosternal chest pain: Retrosternal chest pain/shortness of breath/palpitations/sweats/hypertension- The patient will be admitted to telemetry for serial cardiac enzymes, serial EKG's, cardiac rhythm monitoring and a 2-D echocardiogram with Dopplers. Due to the paroxysmal nature of the symptoms, additional diagnoses to consider: Pheochromocytoma, carcinoid syndrome, clomiphene citrate side effect, panic attacks, among others At time of discharge, obtained 24 hour urine collection for catecholamines. Consulted cardio, and stress test was negative. will defer to PCP further eval of his symptoms. 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: Patient is on clomiphene citrate while he and his have been been trying to conceive for the past year It is possible that the potential side effect of this medication causing hot flashes may be contributing to and/or causing his paroxysmal symptoms We will hold this medication for now Check an FSH, LH, estrogen and testosterone levels (5) PTSD (post-traumatic stress disorder): PTSD/depression/history of suicide attempt/no present suicidal ideation- Continue gabapentin and as needed alprazolam (6) Depression: See above (7) Suicide attempt: See above Total Time Total Time Spent Total Time Spent (In Minutes): 32 Discharge Plan Discharge Items Patient Disposition: Home - Self-Care Reason For Visit: PAROXYSMAL SUBSTERNAL CHEST PRESSURE Discharge Diagnosis: chest pain Activity: Resume your previous activity Non-emergency contact: Primary Care Provider Call non-emergency contact if: you have any medication questions Follow-up/Referrals: Colin Amato M.D. [Primary Care Provider] - Diet: Regular Addtl Attending Provider Instructions: You were found to have chest pain. We are running blood work to rule out any causes such as pheochromocytoma. We also checked your risk for coronary artery disease. Given your normal stress test, your risk is low. Will recommend close followup with your PCP in 1-2 weeks. Pending Studies at Discharge: No Stand-Alone Forms: [employer] Process, Work/School Release, Smoking Ce ssation Medications and DC Order Prescriptions: Continued hydrocodone-acetaminophen 10-325 mg Tablet 1 tab PO Q8H PRN (Reason: Back Pain) RF: 0 montelukast 10 mg Tablet 10 mg PO DAILY RF: 0 clomiphene citrate 50 mg tablet 50 mg PO DAILY RF: 0 amlodipine 5 mg tablet 5 mg PO DAILY RF: 0 alprazolam 0.25 mg tablet 0.25 mg PO DAILY PRN (Reason: Anxiety) RF: 0 gabapentin 300 mg capsule 300 mg PO BID RF: 0 losartan 100 mg tablet 100 mg PO DAILY RF: 0 cholecalciferol (vitamin D3) 50 mcg (2,000 unit) tablet 2,000 unit PO DAILY RF: 0 Discharge Orders: Discharge Order (Routine); Ordered 01/23/22 Ordered By: Arias Sherwood Admission Data Admit Date/Time: 01/22/22 02:12 Attending Provider: Arias Sherwood Admit Provider: Jerad Zavala Primary Care Provider: Colin Amato Other Providers: Jerad Zavala ; Darell Parham ; Bogdan Kim ; Sahil Dorado ; Cb Valdez ; Frandy Martinez ; Mayo Hickman Jr ; Neeraj Arredondo ; Yanna English ; Angie Bejarano ; Terry Fontanez ; Abbe Valencia ; Johnathan Smith ; Radha Damon ; Heide Thao ; Edin Lester ; Yandel Isaac Michael K. 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
== END 2022-01-23 12:12 | disposition home or self-care (01) ==
LOC: 2S 22:38 → ED 22:38 → SUATTDRO 01-22 02:12 → 2S 01-22 02:53
DX: I25.10 Atherosclerotic heart disease of native coronary artery without angina pectoris; I10 Essential (primary) hypertension; N46.9 Male infertility, unspecified; F43.10 Post-traumatic stress disorder, unspecified; R07.2 Precordial pain; T14.91XA Suicide attempt, initial encounter; R06.02 Shortness of breath; F32.9 Major depressive disorder, single episode, unspecified; I25.84 Coronary atherosclerosis due to calcified coronary lesion; Z79.899 Other long term (current) drug therapy; Z87.891 Personal history of nicotine dependence; Z91.041 Radiographic dye allergy status